=== PATIENT | female | born 1960 | race Caucasian/White ===

== ENCOUNTER 2021-01-02 22:02 | Inpatient (IN) ==
[2021-01-03] MEDS ORDERED: Ondansetron 4 MG/2 ML VIAL IVP PRN ×3 (01:16→15:57)
[2021-01-03] MEDS ORDERED: Naloxone 0.4 MG/ML INJ IVP PRN ×2 (01:16→15:57)
[2021-01-03] MEDS ORDERED: Ketorolac 30 MG/ML VIAL IVP PRN (01:16)
[2021-01-03] MEDS ORDERED: *HR* Promethazine 25 MG/ML VIAL IM PRN ×2 (01:16→15:57)
[2021-01-03] MEDS ORDERED: 0.9 % Sodium Chloride 1,000 ML IVC SCH (01:30)
[2021-01-03] MEDS ORDERED: Albuterol Neb 0.63 MG/3 ML VIAL IH PRN ×2 (04:00→15:57)
[2021-01-03 05:10] LABS: Basophils % 0.1 %; Red Cell Distribution Width 15.1 % (11.5-14.5)
[2021-01-03 05:11] LABS: Hematocrit 40.5 % (35.3-44.9); Hemoglobin 13.5 g/dL (11.5-15.4); Immature Granulocytes % 0.7 % (0-4); Lymphocytes # 0.6 K/mcL (0.6-4.6); Lymphocytes % 2.4 %; Mean Corpuscular HGB Conc 33.3 g/dL (31.6-35.5); Mean Corpuscular Hemoglobin 28.6 pg (28.0-33.3); Mean Corpuscular Volume 85.8 fL (83.0-100.0); Mean Platelet Volume 11.4 fL (9.4-12.4); Monocytes # 1.9 K/mcL (0.0-1.3); Monocytes % 7.3 %; Neutrophils # 23.7 K/mcL (1.6-8.9); Platelet Count 267 K/mcL (140-400); Red Blood Count 4.72 M/mcL (3.82-4.97); Segmented Neutrophils % 89.5 %; White Blood Count 26.5 K/mcL (4.3-11.1)
[2021-01-03 05:29] LABS: Alanine Aminotransferase 95 Units/L (7-52); Alkaline Phosphatase 243 Units/L (34-104); Aspartate Amino Transferase 126 Units/L (13-39); BUN/Creatinine Ratio 12 (6-26); Bilirubin,Total 4.8 mg/dL (0.3-1.0); Blood Urea Nitrogen 5 mg/dL (8-23); Calcium 8.1 mg/dL (8.6-10.3); Carbon Dioxide 23 mEq/L (23-29); Chloride 105 mEq/L (98-107); Globulin 3.1 g/dL (2.4-3.5); Glucose 110 mg/dL (70-105); Osmolality,Calculated 278 (280-300); Potassium 3.3 mEq/L (3.5-5.1); Sodium 135 mEq/L (136-145); Total Protein 6.1 g/dL (6.4-8.9); eGFR For African Americans > 60 (> 60); eGFR For Non-African Americans > 60 (> 60)
[2021-01-03] MEDS ORDERED: MetroNIDAZOLE 500 MG/100 ML 500 MG/100 ML BAG IVPB SCH (08:00)
[2021-01-03] MEDS ORDERED: *HR* Propofol 200 MG/20 ML VIAL IVP ONE (10:29)
[2021-01-03] MEDS ORDERED: *HR* Midazolam HCl 2 MG/2 ML VIAL ONE (10:29)
[2021-01-03] MEDS ORDERED: *HR* FentaNYL (PF) 100 MCG/2 ML VIAL ONE (10:29)
[2021-01-03] MEDS ORDERED: Lidocaine -MPF 2% 2 ML VIAL ONE (10:34)
[2021-01-03] MEDS ORDERED: *HR* OxyCODONE Immed Rel 5 MG TABLET PO PRN ×2 (10:34→15:16)
[2021-01-03] MEDS ORDERED: Lidocaine HCL 4 ML Topical Solution (Laryng-O-Jet Kit Sterile Pak) TP ONE (10:34)
[2021-01-03] MEDS ORDERED: Ondansetron 4 MG/2 ML VIAL ONE ×2 (10:34→15:21)
[2021-01-03] MEDS ORDERED: *HR* Rocuronium Bromide 50 MG/5 ML VIAL ONE ×2 (10:34→12:59)
[2021-01-03] MEDS ORDERED: *HR* HYDROmorphone PF 0.5 MG/0.5 ML SYRINGE IVP PRN (10:34)
[2021-01-03] MEDS ORDERED: Acetaminophen IV 0 MG/0 ML BAG IVPB ONE (10:55)
[2021-01-03] MEDS ORDERED: *HR* Succinylcholine 200 MG/10 ML VIAL IVP ONE (11:05)
[2021-01-03] MEDS ORDERED: Isovue-300 50ML VIAL ONE (11:09)
[2021-01-03] MEDS ORDERED: D5% in Water 1,000 ML IVC PRN ×2 (12:06→15:57)
[2021-01-03] MEDS ORDERED: *HR* Dextrose 50 % in Water (Vial) 50 ML VIAL IVP PRN ×2 (12:06→15:57)
[2021-01-03] MEDS ORDERED: Dextrose Gel 15 GM/37.5 ML TUBE PO PRN ×4 (12:06→15:57)
[2021-01-03] MEDS ORDERED: Ipratropium/Albuterol Neb 3 ML IH PRN ×2 (12:10→15:57)
[2021-01-03] MEDS ORDERED: Insulin LISPRO 300 UNITS/3 ML VIAL SUBQ SCH (12:15)
[2021-01-03 14:32] LABS: Estimated Average Glucose 137 mg/dl; Hemoglobin A1C 6.4 %
[2021-01-03] MEDS ORDERED: Sugammadex Sodium 200 MG/2 ML VIAL IV ONE (14:51)
[2021-01-03] MEDS ORDERED: Promethazine 6.25 MG in Water for inj. (sterile) 20 ML IVPB PRN ×2 (15:16→15:57)
[2021-01-03] MEDS: *HR* HYDROmorphone PF 0.5 MG/0.5 ML SYRINGE IVP PRN ×2 (15:23→15:39)
[2021-01-03] MEDS: 0.9 % Sodium Chloride 1,000 ML IVC SCH (16:59)
[2021-01-03] MEDS: MetroNIDAZOLE 500 MG/100 ML 500 MG/100 ML BAG IVPB SCH ×2 (17:00→23:48)
[2021-01-03] MEDS: Insulin LISPRO 300 UNITS/3 ML VIAL SUBQ SCH (17:28)
[2021-01-03] MEDS: risperiDONE 1 MG TABLET PO SCH (19:43)
[2021-01-03] MEDS: ALPRAZolam 1 MG TABLET PO PRN (20:01)
[2021-01-03] MEDS ORDERED: risperiDONE 1 MG TABLET PO SCH (21:00)
[2021-01-03] MEDS: Ketorolac 30 MG/ML VIAL IVP PRN (21:43)
[2021-01-04 02:42] LABS: Basophils % 0.1 %; Hematocrit 33.6 % (35.3-44.9); Immature Granulocytes % 1.2 % (0-4); Lymphocytes % 4.4 %; Mean Corpuscular Hemoglobin 27.6 pg (28.0-33.3); Mean Corpuscular Volume 89.1 fL (83.0-100.0); Mean Platelet Volume 11.6 fL (9.4-12.4); Monocytes # 1.5 K/mcL (0.0-1.3); Monocytes % 6.8 %; Neutrophils # 19.7 K/mcL (1.6-8.9); Platelet Count 221 K/mcL (140-400); Red Blood Count 3.77 M/mcL (3.82-4.97); Red Cell Distribution Width 15.6 % (11.5-14.5); Segmented Neutrophils % 87.5 %; White Blood Count 22.5 K/mcL (4.3-11.1)
[2021-01-04 02:44] LABS: Hemoglobin 10.4 g/dL (11.5-15.4)
[2021-01-04 03:02] LABS: BUN/Creatinine Ratio 20 (6-26); Blood Urea Nitrogen 11 mg/dL (8-23); Calcium 7.8 mg/dL (8.6-10.3); Carbon Dioxide 23 mEq/L (23-29); Chloride 108 mEq/L (98-107); Glucose 108 mg/dL (70-105); Magnesium 1.5 mg/dL (1.6-2.6); Osmolality,Calculated 284 (280-300); Phosphorous 2.9 mg/dL (2.7-4.5); Potassium 3.8 mEq/L (3.5-5.1); Sodium 137 mEq/L (136-145); eGFR For African Americans > 60 (> 60); eGFR For Non-African Americans > 60 (> 60)
[2021-01-04] MEDS: ALPRAZolam 1 MG TABLET PO PRN ×2 (03:16→19:45)
[2021-01-04] MEDS: Ketorolac 30 MG/ML VIAL IVP PRN (03:19)
[2021-01-04] MEDS: 0.9 % Sodium Chloride 1,000 ML IVC SCH (04:54)
[2021-01-04] MEDS: MetroNIDAZOLE 500 MG/100 ML 500 MG/100 ML BAG IVPB SCH ×3 (06:45→23:44)
[2021-01-04] MEDS: Insulin LISPRO 300 UNITS/3 ML VIAL SUBQ SCH ×3 (08:24→16:44)
[2021-01-04 10:05] LABS: Alanine Aminotransferase 89 Units/L (7-52); Albumin 2.5 g/dL (3.5-5.7); Albumin/Globulin Ratio 0.9 (1.1-2.2); Alkaline Phosphatase 180 Units/L (34-104); Aspartate Amino Transferase 117 Units/L (13-39); Bilirubin,Direct 2.5 mg/dL (0.0-0.2); Bilirubin,Indirect 0.8 mg/dL (0.0-1.0); Bilirubin,Total 3.3 mg/dL (0.3-1.0); Globulin 2.7 g/dL (2.4-3.5); Lipase 6 Units/L (11-82); Total Protein 5.2 g/dL (6.4-8.9)
[2021-01-04] MEDS ORDERED: Lidocaine HCL 4 ML Topical Solution (Laryng-O-Jet Kit Sterile Pak) TP ONE (12:45)
[2021-01-04] MEDS ORDERED: *HR* FentaNYL (PF) 100 MCG/2 ML VIAL ONE (12:52)
[2021-01-04] MEDS ORDERED: Ondansetron 4 MG/2 ML VIAL ONE (12:53)
[2021-01-04] MEDS ORDERED: Indomethacin 50 MG SUPP.RECT RC ONE (14:09)
[2021-01-04] MEDS: risperiDONE 1 MG TABLET PO SCH (19:46)
[2021-01-05 06:47] LABS: Basophils % 0.1 %; Hematocrit 31.9 % (35.3-44.9); Hemoglobin 10.2 g/dL (11.5-15.4); Immature Granulocytes % 0.6 % (0-4); Lymphocytes # 1.1 K/mcL (0.6-4.6); Lymphocytes % 7.5 %; Mean Corpuscular Hemoglobin 28.4 pg (28.0-33.3); Mean Corpuscular Volume 88.9 fL (83.0-100.0); Mean Platelet Volume 11.9 fL (9.4-12.4); Monocytes # 1.2 K/mcL (0.0-1.3); Monocytes % 7.8 %; Neutrophils # 12.6 K/mcL (1.6-8.9); Platelet Count 243 K/mcL (140-400); Red Blood Count 3.59 M/mcL (3.82-4.97)
[2021-01-05 07:09] LABS: Alanine Aminotransferase 58 Units/L (7-52); Albumin 2.6 g/dL (3.5-5.7); Albumin/Globulin Ratio 0.9 (1.1-2.2); Alkaline Phosphatase 153 Units/L (34-104); Aspartate Amino Transferase 30 Units/L (13-39); BUN/Creatinine Ratio 30 (6-26); Bilirubin,Total 1.4 mg/dL (0.3-1.0); Blood Urea Nitrogen 13 mg/dL (8-23); Calcium 7.9 mg/dL (8.6-10.3); Carbon Dioxide 23 mEq/L (23-29); Chloride 109 mEq/L (98-107); Globulin 2.9 g/dL (2.4-3.5); Glucose 123 mg/dL (70-105); Magnesium 1.9 mg/dL (1.6-2.6); Osmolality,Calculated 285 (280-300); Phosphorous 2.2 mg/dL (2.7-4.5); Potassium 3.9 mEq/L (3.5-5.1); Sodium 137 mEq/L (136-145); Total Protein 5.5 g/dL (6.4-8.9); eGFR For African Americans > 60 (> 60); eGFR For Non-African Americans > 60 (> 60)
[2021-01-05] MEDS: MetroNIDAZOLE 500 MG/100 ML 500 MG/100 ML BAG IVPB SCH ×2 (08:21→15:09)
[2021-01-05] MEDS: Insulin LISPRO 300 UNITS/3 ML VIAL SUBQ SCH ×3 (08:21→17:23)
[2021-01-05 08:45] LABS: Bilirubin,Direct 0.9 mg/dL (0.0-0.2); Bilirubin,Indirect 0.5 mg/dL (0.0-1.0); Bilirubin,Total 1.4 mg/dL (0.3-1.0)
[2021-01-05] MEDS: risperiDONE 1 MG TABLET PO SCH (21:54)
[2021-01-06] MEDS: MetroNIDAZOLE 500 MG/100 ML 500 MG/100 ML BAG IVPB SCH ×4 (00:03→23:33)
[2021-01-06 01:12] LABS: Basophils % 0.1 %; Eosinophils # 0.2 K/mcL (0.0-0.6); Eosinophils % 1.2 %; Hemoglobin 10.2 g/dL (11.5-15.4); Immature Granulocytes % 0.2 % (0-4); Lymphocytes # 1.8 K/mcL (0.6-4.6); Lymphocytes % 13.1 %; Mean Corpuscular HGB Conc 31.9 g/dL (31.6-35.5); Mean Corpuscular Volume 87.9 fL (83.0-100.0); Mean Platelet Volume 11.2 fL (9.4-12.4); Monocytes # 1.4 K/mcL (0.0-1.3); Monocytes % 10.4 %; Platelet Count 280 K/mcL (140-400); Red Blood Count 3.64 M/mcL (3.82-4.97); Red Cell Distribution Width 16.1 % (11.5-14.5); White Blood Count 13.4 K/mcL (4.3-11.1)
[2021-01-06 01:34] LABS: % Iron Saturation 7 % (15-50); Alanine Aminotransferase 43 Units/L (7-52); Albumin 2.6 g/dL (3.5-5.7); Alkaline Phosphatase 157 Units/L (34-104); Aspartate Amino Transferase 25 Units/L (13-39); BUN/Creatinine Ratio 22 (6-26); Bilirubin,Total 1.2 mg/dL (0.3-1.0); Blood Urea Nitrogen 8 mg/dL (8-23); Calcium 7.6 mg/dL (8.6-10.3); Carbon Dioxide 23 mEq/L (23-29); Chloride 109 mEq/L (98-107); Globulin 2.7 g/dL (2.4-3.5); Glucose 105 mg/dL (70-105); Iron 23 mcg/dL (50-170); Magnesium 1.6 mg/dL (1.6-2.6); Osmolality,Calculated 283 (280-300); Phosphorous 1.7 mg/dL (2.7-4.5); Potassium 3.7 mEq/L (3.5-5.1); Sodium 137 mEq/L (136-145); Total Protein 5.3 g/dL (6.4-8.9); Transferrin 221 mg/dL (203-362); eGFR For African Americans > 60 (> 60); eGFR For Non-African Americans > 60 (> 60)
[2021-01-06 01:48] LABS: Ferritin 117 ng/mL (10-120)
[2021-01-06 01:54] LABS: Folate 5.2 ng/mL (3.0-16.0)
[2021-01-06] MEDS: Ketorolac 30 MG/ML VIAL IVP PRN (05:28)
[2021-01-06] MEDS: Insulin LISPRO 300 UNITS/3 ML VIAL SUBQ SCH ×3 (09:00→18:51)
[2021-01-06] MEDS: ALPRAZolam 1 MG TABLET PO PRN (11:34)
[2021-01-06] MEDS: risperiDONE 1 MG TABLET PO SCH (20:19)
[2021-01-07 03:44] LABS: Basophils % 0.1 %; Eosinophils # 0.3 K/mcL (0.0-0.6); Eosinophils % 1.9 %; Hematocrit 32.8 % (35.3-44.9); Hemoglobin 10.3 g/dL (11.5-15.4); Immature Granulocytes % 0.4 % (0-4); Lymphocytes # 1.8 K/mcL (0.6-4.6); Lymphocytes % 12.4 %; Mean Corpuscular HGB Conc 31.4 g/dL (31.6-35.5); Mean Corpuscular Hemoglobin 27.5 pg (28.0-33.3); Mean Corpuscular Volume 87.5 fL (83.0-100.0); Mean Platelet Volume 11.3 fL (9.4-12.4); Monocytes # 1.9 K/mcL (0.0-1.3); Monocytes % 13.4 %; Neutrophils # 10.2 K/mcL (1.6-8.9); Platelet Count 301 K/mcL (140-400); Red Blood Count 3.75 M/mcL (3.82-4.97); Red Cell Distribution Width 15.9 % (11.5-14.5); Segmented Neutrophils % 71.8 %; White Blood Count 14.2 K/mcL (4.3-11.1)
[2021-01-07 03:49] LABS: BUN/Creatinine Ratio 16 (6-26); Blood Urea Nitrogen 5 mg/dL (8-23); Calcium 7.6 mg/dL (8.6-10.3); Carbon Dioxide 24 mEq/L (23-29); Chloride 106 mEq/L (98-107); Glucose 110 mg/dL (70-105); Magnesium 1.5 mg/dL (1.6-2.6); Osmolality,Calculated 284 (280-300); Phosphorous 1.7 mg/dL (2.7-4.5); Potassium 3.6 mEq/L (3.5-5.1); Sodium 138 mEq/L (136-145); eGFR For African Americans > 60 (> 60); eGFR For Non-African Americans > 60 (> 60)
[2021-01-07] MEDS: MetroNIDAZOLE 500 MG/100 ML 500 MG/100 ML BAG IVPB SCH ×3 (08:04→23:37)
[2021-01-07] MEDS: Insulin LISPRO 300 UNITS/3 ML VIAL SUBQ SCH ×3 (08:11→17:16)
[2021-01-07] MEDS: Furosemide 20 MG/2 ML VIAL IVP SCH ×2 (08:58→20:33)
[2021-01-07] MEDS: ALPRAZolam 1 MG TABLET PO PRN (08:59)
[2021-01-07] MEDS: risperiDONE 1 MG TABLET PO SCH (20:34)
[2021-01-07] MEDS: Ketorolac 30 MG/ML VIAL IVP PRN (23:45)
[2021-01-08 06:13] LABS: Basophils % 0.2 %; Eosinophils # 0.4 K/mcL (0.0-0.6); Eosinophils % 2.6 %; Hematocrit 33.6 % (35.3-44.9); Hemoglobin 10.8 g/dL (11.5-15.4); Immature Granulocytes % 0.5 % (0-4); Lymphocytes # 1.9 K/mcL (0.6-4.6); Lymphocytes % 14.5 %; Mean Corpuscular HGB Conc 32.1 g/dL (31.6-35.5); Mean Corpuscular Hemoglobin 27.3 pg (28.0-33.3); Mean Corpuscular Volume 85.1 fL (83.0-100.0); Mean Platelet Volume 10.8 fL (9.4-12.4); Monocytes # 1.6 K/mcL (0.0-1.3); Monocytes % 12.1 %; Neutrophils # 9.4 K/mcL (1.6-8.9); Platelet Count 371 K/mcL (140-400); Red Blood Count 3.95 M/mcL (3.82-4.97); Red Cell Distribution Width 15.1 % (11.5-14.5); Segmented Neutrophils % 70.1 %; White Blood Count 13.4 K/mcL (4.3-11.1)
[2021-01-08 06:28] LABS: BUN/Creatinine Ratio 24 (6-26); Blood Urea Nitrogen 9 mg/dL (8-23); Calcium 7.8 mg/dL (8.6-10.3); Carbon Dioxide 29 mEq/L (23-29); Chloride 99 mEq/L (98-107); Glucose 133 mg/dL (70-105); Magnesium 1.6 mg/dL (1.6-2.6); Osmolality,Calculated 287 (280-300); Phosphorous 2.1 mg/dL (2.7-4.5); Potassium 2.9 mEq/L (3.5-5.1); Sodium 138 mEq/L (136-145); eGFR For African Americans > 60 (> 60); eGFR For Non-African Americans > 60 (> 60)
[2021-01-08] MEDS: Insulin LISPRO 300 UNITS/3 ML VIAL SUBQ SCH ×2 (08:10→11:26)
[2021-01-08] MEDS: MetroNIDAZOLE 500 MG/100 ML 500 MG/100 ML BAG IVPB SCH (08:31)
[2021-01-08] MEDS: Furosemide 20 MG/2 ML VIAL IVP SCH (08:34)
[2021-01-08 11:08] VITALS: BP 125/85; PULSE 95; TEMP 97.7; O2SAT 95
[2021-01-08 14:59] LABS: BUN/Creatinine Ratio 29 (6-26); Blood Urea Nitrogen 12 mg/dL (8-23); Calcium 8.2 mg/dL (8.6-10.3); Carbon Dioxide 29 mEq/L (23-29); Chloride 100 mEq/L (98-107); Glucose 167 mg/dL (70-105); Osmolality,Calculated 292 (280-300); Potassium 3.1 mEq/L (3.5-5.1); Sodium 139 mEq/L (136-145); eGFR For African Americans > 60 (> 60); eGFR For Non-African Americans > 60 (> 60)
== END 2021-01-08 15:51 | disposition home health service (06) | DRG 263 ==
LOC: 3BNU → SUATTDRO 01-03 00:05
PROVIDERS: ADMIT Family Medicine; ATTEND Internal Medicine